=== PATIENT | male | born 1945 | race Caucasian/White ===

== ENCOUNTER 2021-12-17 13:53 | Emergency (ER) | payer MEDICARE, OTHER, SELFPAY ==
--- NOTE | ~2021-12-17 | XR_ITS ---
EXAMINATION: XR chest 2V 12/17/2021 14:20 INDICATION: Cough PROCEDURE: 2 view chest COMPARISON: No prior studies for comparison. FINDINGS: The lungs are clear. The cardiomediastinal silhouette is within normal limits. There are no pleural effusions. There is no pneumothorax suspected. IMPRESSION: 1: NO ACUTE CARDIOPULMONARY DISEASE. Reviewed, dictated and finalized at location B.
[2021-12-17 14:09] VITALS: BP 161/62; PULSE 84; RESP 18; TEMP 36.9; O2SAT 95
--- NOTE | 2021-12-17 14:36 | ED.URI ---
HPI - URI/Sore Throat General Chief Complaint: Upper Respiratory Infection Stated Complaint: cough,bilateral ear pain Time Seen by Provider: 12/17/21 14:20 Source: patient Mode of arrival: ambulatory Limitations: no limitations History of Present Illness HPI Narrative: 76-year-old male presents with complaint of cough, chest congestion for 4 weeks. Was in hospital 4 weeks ago for bronchitis. Is using DuoNeb 4 to 5 times a day. Reports not recently on any steroids or antibiotics. Patient also complaining of sinus pressure, sinus congestion, postnasal drainage for 2 weeks. Is concerned he has dissection. Afebrile. Does not take any allergy medications. Patient is short of breath with exertion. Able to speak in full sentences. All systems reviewed and negative except as noted above. Related Data Home Medications Medication Instructions Recorded Confirmed albuterol sulfate 90 mcg/actuation 1 inh inhalation DIRECTED 12/17/21 12/17/21 aerosol inhaler amlodipine 5 mg-benazepril 20 mg 1 cap DAILY 12/17/21 12/17/21 capsule clonazepam 2 mg tablet 2 mg DAILY 12/17/21 12/17/21 empagliflozin 12.5 mg-metformin 1 tablet DAILY 12/17/21 12/17/21 1,000 mg tablet (Synjardy) ergocalciferol (vitamin D2) 1,250 1,250 mcg WEEKLY 12/17/21 12/17/21 mcg (50,000 unit) capsule finasteride 5 mg tablet 5 mg DAILY 12/17/21 12/17/21 fluticasone propionate 220 1 inh inhalation DIRECTED 12/17/21 12/17/21 mcg/actuation HFA aerosol inhaler (Flovent HFA) gabapentin 100 mg capsule 100 mg HS 12/17/21 12/17/21 icosapent ethyl 1 gram capsule 1 g PO TID 12/17/21 12/17/21 (Vascepa) insulin glargine 100 unit/mL (3 75 unit subcut HS 12/17/21 12/17/21 mL) subcutaneous pen insulin lispro 100 unit/mL 1 unit subcut DIRECTED 12/17/21 12/17/21 subcutaneous pen (Humalog KwikPen (U-100) Insulin) ipratropium 0.5 mg-albuterol 3 mg 1 ml inhalation DIRECTED 12/17/21 12/17/21 (2.5 mg base)/3 mL nebulization soln isosorbide mononitrate 30 mg 30 mg PO DAILY 12/17/21 12/17/21 tablet,extended release 24 hr lorazepam 1 mg tablet 1 mg DAILY 12/17/21 12/17/21 metoprolol succinate 50 mg 50 mg PO DAILY 12/17/21 12/17/21 tablet,extended release 24 hr montelukast 10 mg tablet 10 mg DAILY 12/17/21 12/17/21 semaglutide 7 mg tablet (Rybelsus) 7 mg PO BID 12/17/21 12/17/21 sertraline 100 mg tablet 100 mg DAILY 12/17/21 12/17/21 tamsulosin 0.4 mg capsule 0.4 mg PO DAILY 12/17/21 12/17/21 Allergies Allergy/AdvReac Type Severity Reaction Status Date / Time erythromycin base Allergy Swelling Verified 12/17/21 14:16 Review of Systems Review of Systems: CONSTITUTIONAL: Denies fever, chills, or sweats. reports fatigue. EYES: Denies visual changes, redness, or discharge. ENT: Report rhinorrhea, congestion, sinus pressure. Denies sore throat, or otalgia. CARDIOVASCULAR: Denies chest pain, palpitations, or edema. RESPIRATORY: Reports cough and dyspnea with exertion. GASTROINTESTINAL: Denies abdominal pain, nausea, vomiting, or diarrhea. GENITOURINARY: Denies dysuria or hematuria. SKIN: Denies rash or itching. MUSCULOSKELETAL: Denies back pain, joint pain, or myalgia. NEUROLOGIC: Denies headache, numbness, or weakness. PSYCHIATRIC: Denies anxiety or depression. All other systems reviewed are negative, except as documented in HPI. PMFSH Comments At time of signature, agree with nursing past medical, surgical, social and family history. There is no relevant family history pertinent to the presenting complaint. Exam Narrative: GENERAL: This is a well-nourished, well-developed patient, in no apparent distress. HEAD: normocephalic, atraumatic. EYES: PERRL. Sclera clear/white. Vision is grossly intact. EARS: External ears normal, auditory canals clear and without drainage, TMs opaque, dull light reflex. NOSE: External nose normal with Clear nasal drainage, moderate congestion, erythema tenderness. Bilateral maxillary sinus tendern
[2021-12-17] MEDS: methylPREDNISolone SOD SUCC 125 MG VIAL IM (14:40)
[2021-12-17] MEDS: IPRATROPIUM BR 0.02% INH SOLN 0.5 MG/2.5 ML VIAL INHALATION (14:42)
[2021-12-17] MEDS: ALBUTEROL SULFATE NEB 2.5 MG/3 ML INH INHALATION (14:42)
--- NOTE | 2021-12-17 15:01 | PC.NURSE ---
1442- [facility] neb started using mask
== END 2021-12-17 15:42 | disposition home or self-care (01) ==
PROVIDERS: Emergency Provider Nurse Practitioner Family; PCP Family Medicine
DX: J01.90 Acute sinusitis, unspecified (principal); B96.89 Other specified bacterial agents as the cause of diseases classified elsewhere; J40 Bronchitis, not specified as acute or chronic; Z79.4 Long term (current) use of insulin
CPT/HCPCS: 71046; 94640; 96372; 99203; G0463; J2930